=== PATIENT | male | born 1955 | race American Indian/Alaskan Native ===

== ENCOUNTER 2019-01-23 12:10 | Observation (INO) | payer MEDICARE, OTHER ==
[2019-01-11 12:45] LABS: Basophils # (Auto) 0.1 K/mm3 (0.0-0.1); Basophils % (Auto) 1.8 % (0.0-1.8); Eosinophils # (Auto) 0.2 K/mm3 (0.0-0.4); Eosinophils % (Auto) 3.5 % (0.0-4.3); Hematocrit 44.1 % (35.5-45.6); Hemoglobin 14.8 gm/dl (11.8-15.2); Lymphocytes # (Auto) 1.3 K/mm3 (1.2-5.4); Mean Corpuscular HGB Conc 34 % (32-34); Mean Corpuscular Volume 94 fl (84-94); Monocytes # (Auto) 0.3 K/mm3 (0.0-0.8); Platelet Count 218 K/mm3 (140-440); Red Cell Distribution Width 14.5 % (13.2-15.2)
[2019-01-11 12:57] LABS: Alanine Aminotransferase 28 units/L (7-56); Albumin 4.3 g/dL (3.9-5); BUN/Creatinine Ratio 16; Blood Urea Nitrogen 14 mg/dL (9-20); Calcium 8.8 mg/dL (8.4-10.2); Hemolysis Index 29
--- NOTE | 2019-01-11 17:02 | Anesthesia Consultation ---
Anesthesia Consult and Med Hx Date of service: 01/11/19 - Airway Anesthetic Teeth Evaluation: Good ROM Head & Neck: Adequate Mental/Hyoid Distance: Adequate Mallampati Class: Class II Intubation Access Assessment: Good - Pulmonary Exam CTA: Yes - Cardiac Exam Cardiac Exam: RRR - Pre-Operative Health Status ASA Pre-Surgery Classification: ASA2 Proposed Anesthetic Plan: General (severe PONV with anesthesia) - Pulmonary Hx Smoking: No Hx Sleep Apnea: Yes (DX SLEEP APNEA , NO CPAP USE.) - Cardiovascular System Hx Hypertension: No
[~2019-01-23 12:10] MED LIST: GENTAMICIN/NS 80 MG/100 ML 100 ML IV SCH; LACTATED RINGERS 1,000 ML IV SCH; METOCLOPRAMIDE 10 MG/2 ML INJ IV NR; MIDAZOLAM 2 MG/2 ML INJ IV NR; ONDANSETRON 4 MG/2 ML INJ IV NR; VANCOMYCIN/NS 1 GM/250 ML 1 GM/250 ML BAG IV SCH
[2019-01-23] MEDS ORDERED: HYDROmorphone 1 MG/1 ML INJ IV PRN (12:32)
[2019-01-23] MEDS ORDERED: ONDANSETRON 4 MG/2 ML INJ IV PRN ×2 (12:32→16:06)
--- NOTE | 2019-01-23 12:32 | Anesthesia Day of Surgery ---
Anesthesia Day of Surgery - Day of Surgery Patient Examined: Yes Patient H&P Reviewed: Yes Patient is NPO: Yes
[2019-01-23] MEDS ORDERED: ACETAMINOPHEN 500 MG TAB PO NR (12:33)
[2019-01-23] MEDS ORDERED: MAGNESIUM OXIDE 400 MG TAB PO NR (12:33)
[2019-01-23] MEDS ORDERED: MIDAZOLAM 2 MG/2 ML INJ IV NR (13:00)
[2019-01-23] MEDS ORDERED: GABAPENTIN 300 MG CAP PO NR (13:00)
[2019-01-23] MEDS ORDERED: VANCOMYCIN/NS 1 GM/250 ML 1 GM/250 ML BAG IV NR (13:05)
[2019-01-23] MEDS ORDERED: GENTAMICIN 150 MG in SODIUM CHLORIDE 0.9% 100 ML IV NR (13:15)
[2019-01-23] MEDS ORDERED: SODIUM CHLORIDE 0.9% 500 ML 500 ML ONE (13:43)
[2019-01-23] MEDS ORDERED: BUPIVACAINE/PF (0.5%) 5 MG/1 ML 30 ML VIAL INFILTRATI ONE (13:43)
[2019-01-23] MEDS ORDERED: SODIUM CHLORIDE 0.9% 1000 ML 0 ML ONE (13:43)
[2019-01-23] MEDS ORDERED: NEOMY 40 MG/POLYMYXIN B 200,000 UNITS/ML (GU) AMPULE IR ONE ×2 (13:43→15:21)
[2019-01-23] MEDS ORDERED: SODIUM CHLORIDE P/F VIAL 10 ML 20 ML ONE (13:50)
[2019-01-23] MEDS ORDERED: HYDROmorphone 1 MG/1 ML INJ ONE ×2 (14:14→16:33)
[2019-01-23] MEDS ORDERED: PROPOFOL 200 MG/20 ML VIAL IV ONE (14:14)
[2019-01-23] MEDS ORDERED: LIDOCAINE MPF (2%) 20 MG/1 ML VIAL 5 ML ONE (14:14)
[2019-01-23] MEDS ORDERED: BUPIVACAINE/PF (0.5%) 5 MG/1 ML 10 ML VIAL INFILTRATI ONE (15:20)
[2019-01-23] MEDS ORDERED: SODIUM CHLORIDE 0.9% IRR 1,000 ML BOTTLE IR ONE (15:20)
[2019-01-23] MEDS ORDERED: SODIUM CHLORIDE 0.9% 50 ML IVPB IV ONE (15:20)
[2019-01-23] MEDS ORDERED: SODIUM CHLORIDE 0.9% 500 ML IVPB IRRIGATION ONE (15:20)
[2019-01-23] MEDS ORDERED: GLYCOPYRROLATE 0.4 MG/2 ML INJ ONE (15:34)
[2019-01-23] MEDS ORDERED: ONDANSETRON 4 MG/2 ML INJ ONE (15:50)
[2019-01-23] MEDS ORDERED: dexAMETHasone 20 MG/5 ML VIAL ONE (15:50)
--- NOTE | 2019-01-23 16:03 | Short Stay Summary ---
Short Stay Documentation Date of service: 01/23/19 - History H&P: obtained from office - Allergies and Medications Current Medications: Allergies bee venom protein (honey bee) Allergy (Verified 01/10/19 14:32) Anaphylaxis pineapple Allergy (Verified 01/10/19 14:32) Shortness of Breath shellfish derived Allergy (Verified 01/10/19 14:32) Swelling Home Medications Medication Instructions Recorded Confirmed Last Taken Type Naproxen [Naprosyn] 500 mg PO PRN PRN 01/10/19 01/23/19 01/18/19 08:00 History Tamsulosin [Flomax] 0.4 mg PO QDAY 01/10/19 01/23/19 12/24/18 08:00 History Active Medications Gabapentin (Gabapentin) 300 mg PO PREOP NR Stop: 01/23/19 20:00 Last Admin: 01/23/19 13:20 Dose: 300 mg Documented by: Hydromorphone HCl (Dilaudid) 0.5 mg IV Q10MIN PRN PRN Reason: Pain , Severe (7-10) Stop: 01/23/19 22:00 Lactated Ringer's (Lactated Ringers) 1,000 mls @ 100 mls/hr IV DIRECT ALICE Last Admin: 01/23/19 13:25 Dose: 100 mls/hr Documented by: Vancomycin HCl (Vancomycin/Ns 1 Gm/250 Ml) 1 gm in 250 mls @ 166.667 mls/hr IV PREOP NR; Protocol Stop: 01/23/19 23:59 Last Admin: 01/23/19 13:55 Dose: 166.667 mls/hr Documented by: Gentamicin Sulfate 150 mg/ (Sodium Chloride) 103.75 mls @ 200 mls/hr IV PREOP NR Stop: 01/23/19 23:59 Midazolam HCl (Versed) 2 mg IV PREOP NR Stop: 01/23/19 23:59 Ondansetron HCl (Zofran) 4 mg IV ONCE PRN PRN Reason: Nausea And Vomiting Stop: 01/23/19 23:00 - Brief post op/procedure progress note Date of procedure: 01/23/19 Pre-op diagnosis: impotence Post-op diagnosis: same Procedure: ipp (ams 21+ 4cm RTE) Anesthesia: GETA Surgeon: SHANNAN INIGUEZ Estimated blood loss: minimal Pathology: none Condition: stable - Hospital course Hospital course: pt has abx & pain meds at home post op info on chart - Disposition Condition at discharge: Stable Disposition: DC-01 TO HOME OR SELFCARE Short Stay Discharge Plan Follow up with: MESFIN GUALLPA MD [Primary Care Provider] - 7 Days
[2019-01-23] MEDS ORDERED: SODIUM CHLORIDE 0.9% 1000 ML 1,000 ML ONE (16:05)
[2019-01-23] MEDS ORDERED: MORPHINE 2 MG/1 ML INJ IV PRN (16:06)
[2019-01-23] MEDS ORDERED: NALOXONE 0.4 MG/1 ML INJ IV PRN (16:06)
--- NOTE | 2019-01-23 17:20 | Operative Report ---
PREOPERATIVE DIAGNOSIS: Organic impotence. POSTOPERATIVE DIAGNOSIS: Organic impotence. PROCEDURE: Insertion of inflatable penile prosthesis (AMS-CX 21 cm + 4 cm rear tip extenders). SURGEON: Dr. Osullivan. MANAGER PERSONAL: Kamala Coburn. ANESTHESIA: General. ESTIMATED BLOOD LOSS: Minimal. FLUIDS: Crystalloid. COMPLICATIONS: No complications. INDICATIONS: This patient is a 63-year-old gentleman with history of prostate cancer, status post radiation therapy and prolonged erectile dysfunction, refractory to medical management. Discussed options and reviewed disc. The patient agreed to proceed with surgical intervention. DESCRIPTION OF PROCEDURE: The patient was taken to the operative suite, placed in a supine position. After adequate general anesthesia, he was prepped and draped in a sterile fashion. Angulo catheter was placed on the operative field. A trans-scrotal incision was made with the Bovie. Metal [place] retractor was used for exposure. Stretch measurement of the penis from the pubic bone to the tip of the penis was 17 cm. A 0.25% Marcaine was injected into the right shaft of the penis. No plaque. Mild curvature to the left could be appreciated. It may be 10 degrees. Trans-scrotal incision was made. Bovie was taken down to the corporal bodies, 2-0 Vicryl stay sutures were placed, corporotomies were made with the Bovie. Gentle dilation was performed. Measurements revealed a total of 25 cm bilaterally; therefore, a 21 cm AMS-CX device was prepped 100 with 4 cm rear tip extenders. A 100 mL Conceal reservoir was prepped and placed in the retropubic space via the right external ring. With the aid of the Jarocho needle, the cylinders were placed in the corporal bodies. Corporotomies were then closed with 2-0 Vicryl in a running fashion. Insufflation of the device revealed an excellent cosmetic appearance. It was deflated. The pump was then connected to the reservoir with the quick click connection system and again it was inflated with an excellent cosmetic appearance. The pump and reservoir was connected with the quick click connection system. The pump was then placed in the dependent portion of the scrotum. A 2-0 Vicryl pursestring suture was used to secure it in the dependent portion of the scrotum and the dartos layer was closed with 2-0 Vicryl in a running fashion. Skin was closed with 2-0 Vicryl in interrupted fashion. Collodion and then Xeroform gauze was placed as well as a mummy wrap. The patient tolerated the procedure well and was extubated and taken to recovery room. He will be observed overnight. He has his prescriptions for pain medication and antibiotics. JOB# [id number] [facility]
--- NOTE | 2019-01-23 20:02 | Post Anesthesia Evaluation ---
- Post Anesthesia Evaluation Patient Participated: Yes Airway Patent: Yes Stable Respiratory Function: Yes Nausea/Vomiting: No Temp > 96.8F: Yes Pain Manageable: Yes Adequeate Hydration: Yes Anesthesia Complications: No
[2019-01-23] MEDS: ceFAZolin/NS 1 GM/50 ML 1 GM/50 ML BAG IV SCH (22:32)
[2019-01-24] MEDS: HYDROcodone/ACETAMINOPHEN 5-325 MG TAB PO PRN ×2 (03:05→10:29)
[2019-01-24] MEDS: SODIUM CHLORIDE 0.45% 1000 ML 1,000 ML IV SCH ×2 (03:15→10:35)
[2019-01-24] MEDS: ceFAZolin/NS 1 GM/50 ML 1 GM/50 ML BAG IV SCH (06:41)
[2019-01-24] MEDS ORDERED: TAMSULOSIN 0.4 MG CAP PO SCH (10:00)
[2019-01-24 12:12] VITALS: BP 104/61
--- NOTE | 2019-01-24 12:25 | Progress Note ---
Assessment and Plan wrap off ole well Subjective Date of service: 01/24/19 Objective - Constitutional Vitals: Vital Signs - 12hr 01/24/19 01/24/19 01/24/19 04:10 07:41 11:37 Temperature 97.5 F L 97.8 F 97.7 F Pulse Rate 55 L 54 L 60 Respiratory 20 18 18 Rate Blood Pressure 105/58 102/55 104/61 O2 Sat by Pulse 91 96 96 Oximetry General appearance: Present: no acute distress - Neck Neck: supple - Respiratory Respiratory effort: normal - Gastrointestinal General gastrointestinal: Present: soft, non-tender - Genitourinary Male genitourinary: tender - Labs CBC & Chem 7: 01/11/19 12:10 01/11/19 12:10 Medications & Allergies - Medications Allergies/Adverse Reactions: Allergies bee venom protein (honey bee) Allergy (Verified 01/10/19 14:32) Anaphylaxis pineapple Allergy (Verified 01/10/19 14:32) Shortness of Breath shellfish derived Allergy (Verified 01/10/19 14:32) Swelling Home Medications: Home Medications Medication Instructions Recorded Confirmed Last Taken Type Naproxen [Naprosyn] 500 mg PO PRN PRN 01/10/19 01/23/19 01/18/19 08:00 History Tamsulosin [Flomax] 0.4 mg PO QDAY 01/10/19 01/23/19 12/24/18 08:00 History Active Medications: Generic Name Dose Route Start Last Admin Trade Name Freq PRN Reason Stop Dose Admin Acetaminophen/Hydrocodone Bitart 2 each 01/23/19 16:06 01/24/19 10:29 Saucier 5/325 PO 2 each Q6H PRN Administration Pain, Moderate (4-6) Lactated Ringer's 1,000 mls @ 100 mls/hr 01/11/19 18:00 01/23/19 13:25 Lactated Ringers IV 100 mls/hr DIRECT ALICE Administration Sodium Chloride 1,000 mls @ 100 mls/hr 01/23/19 17:00 01/24/19 10:35 Nacl 0.45% 1000 Ml IV 100 mls/hr DIRECT ALICE Administration Morphine Sulfate 2 mg 01/23/19 16:06 01/23/19 22:33 Morphine IV 2 mg Q4H PRN Administration Pain, Moderate (4-6) Naloxone HCl 0.1 mg 01/23/19 16:06 Naloxone IV Q2MIN PRN Res Rate </= 8 or 02 SAT < 92% Ondansetron HCl 4 mg 01/23/19 16:06 Zofran IV Q8H PRN N/V unrelieved by Hung Tamsulosin HCl 0.4 mg 01/24/19 10:00 01/24/19 10:30 Flomax PO 0.4 mg QDAY ALICE Administration
--- NOTE | 2019-01-24 12:25 | Discharge Summary ---
Short Stay Discharge Plan Activity: other Weight Bearing Status: Full Weight Bearing Diet: regular, low fat, low cholesterol, low salt Wound: open to air Special Instructions: other (no sex ) Follow up with: MESFIN GUALLPA MD [Primary Care Provider] - 7 Days SHANNAN INIGUEZ MD [Staff Physician] - 7 Days
== END 2019-01-24 16:00 | disposition home or self-care (01) ==
LOC: OR 12:10 → 3B-SURG 16:06
PROVIDERS: ADMIT Urology; ATTEND Urology
DX: N52.9 Male erectile dysfunction, unspecified (principal); Z91.018 Allergy to other foods; Z91.013 Allergy to seafood
CPT/HCPCS: 36415; 54401; 80053; 85025; 96365; 96366; 96367; 96375; C1813; G0378; J0690; J1100; J1170; J1580; J2250; J2270; J2405; J2704; J3370; J7030; J7040; J7120

== ENCOUNTER 2019-03-07 05:20 | Emergency (ER) | payer MEDICARE, OTHER ==
[2019-03-07 06:18] LABS: Basophils % (Auto) 0.6 % (0.0-1.8); Eosinophils # (Auto) 0.2 K/mm3 (0.0-0.4); Eosinophils % (Auto) 4.2 % (0.0-4.3); Hematocrit 42.2 % (35.5-45.6); Hemoglobin 14.2 gm/dl (11.8-15.2); Lymphocytes # (Auto) 1.3 K/mm3 (1.2-5.4); Lymphocytes % (Auto) 25.7 % (13.4-35.0); Mean Corpuscular HGB Conc 34 % (32-34); Mean Corpuscular Volume 93 fl (84-94); Monocytes # (Auto) 0.5 K/mm3 (0.0-0.8); Monocytes % (Auto) 9.2 % (0.0-7.3); Platelet Count 212 K/mm3 (140-440); Red Blood Count 4.55 M/mm3 (3.65-5.03); Red Cell Distribution Width 14.3 % (13.2-15.2)
[2019-03-07 06:30] LABS: INR 0.98 (0.87-1.13)
[2019-03-07 06:31] LABS: Partial Thromboplastin Time 29.7 Sec. (24.2-36.6)
[2019-03-07 06:41] LABS: Alanine Aminotransferase 33 units/L (7-56); Albumin 4.3 g/dL (3.9-5); BUN/Creatinine Ratio 18; Blood Urea Nitrogen 16 mg/dL (9-20); Calcium 9.1 mg/dL (8.4-10.2); Hemolysis Index 16
[2019-03-07 06:47] VITALS: BP 149/84
--- NOTE | 2019-03-07 06:51 | Emergency Department Report ---
HPI - General Chief Complaint: Urogenital-Male Time Seen by Provider: 03/07/19 06:40 - HPI HPI: 64-year-old Afro-Iraqi male presents to the emergency department with a complaint of some bleeding from the incision site of where the patient had a penis pump placed on January [address] Osullivan. He says "I was told to come to the emergency department any time there is fresh blood." Patient denies any sexual intercourse, masturbation or any type of trauma. He says that he woke up around 4 AM and saw a large amount of blood. He held pressure and the bleeding stopped. He does not have any significant pain. ED Past Medical Hx - Past Medical History Previous Medical History?: Yes Hx Hypertension: No Hx Arthritis: Yes Hx Tuberculosis: Yes (POSITIVE SKIN TEST,TOOK TX, NEG CXR 2008) Hx HIV: No - Surgical History Past Surgical History?: Yes Additional Surgical History: penile implant 01/23/2019 - Social History Smoking Status: Never Smoker Substance Use Type: None - Medications Home Medications: Home Medications Medication Instructions Recorded Confirmed Last Taken Type Naproxen [Naprosyn] 500 mg PO PRN PRN 01/10/19 01/23/19 01/18/19 08:00 History Tamsulosin [Flomax] 0.4 mg PO QDAY 01/10/19 01/23/19 12/24/18 08:00 History ED Review of Systems ROS: Stated complaint: BLEEDING FROM SCROTUM PUMP Other details as noted in HPI Comment: All other systems reviewed and negative Constitutional: denies: chills, fever Respiratory: denies: cough, shortness of breath Cardiovascular: denies: chest pain Gastrointestinal: denies: abdominal pain, vomiting Genitourinary: other (penile bleeding from incision site). denies: dysuria, discharge Skin: denies: rash, lesions Physical Exam - Physical Exam Vital Signs: Vital Signs 03/07/19 03/07/19 05:26 06:45 Temperature 97.8 F 98.3 F Pulse Rate 79 68 Respiratory 18 14 Rate Blood Pressure 132/96 Blood Pressure 149/84 [Left] O2 Sat by Pulse 98 97 Oximetry Physical Exam: GENERAL: The patient is well-developed well-nourished. HEENT: Normocephalic. Atraumatic. Patient has moist mucous membranes. EYES: Extraocular motions are intact. NECK: Supple. Trachea is midline. CHEST/LUNGS: Clear to auscultation. There is no respiratory distress noted. HEART/CARDIOVASCULAR: Regular. There is no tachycardia. There is no murmur. ABDOMEN: Abdomen is soft, nontender. Patient has normal bowel sounds. There is no abdominal distention. SKIN:Skin is warm and dry. . NEURO: The patient is awake, alert, and oriented. The patient is cooperative. Normal speech. MUSCULOSKELETAL: There is no tenderness or deformity. There is no evidence of acute injury. : There is an incision seen to the volar portion of the genitals at the base of the penis and scrotum. No current bleeding. No erythema. No swelling. ED Course Vital Signs 03/07/19 03/07/19 05:26 06:45 Temperature 97.8 F 98.3 F Pulse Rate 79 68 Respiratory 18 14 Rate Blood Pressure 132/96 Blood Pressure 149/84 [Left] O2 Sat by Pulse 98 97 Oximetry - Consultations Consultation #1: 03/07/19 10:[address] Song, the urologist on for Dr. Osullivan, who says the patient can be discharged to follow up in their office this morning starting at 8:45 AM. ED Medical Decision Making - Lab Data Result diagrams: 03/07/19 05:54 03/07/19 05:54 - Medical Decision Making This patient presents with some bleeding at the incision site where he had a penis pump placed about 6 weeks ago. No signs of infection at this time. Vital signs stable. Labs are unremarkable. Hemoglobin of 14. Urinalysis negative f or urinary tract infection. Urology contacted and patient can follow-up in the office this morning. Patient understands and was discharged to go directly to the urology office. - Differential Diagnosis cellulitis, hematoma, dehiscence Critical Care Time: No Critical care attestation.: If time is entered above; I have spent that time in minutes in the direct care of this critically ill patient, excluding procedure time. ED Disposition Clinical Impression: Postoperative bleeding from incision Complication of implanted penile prosthesis Qualifiers: Device complication type: unspecified Encounter type: initial encounter Qualified Code(s): T83.9XXA - Unspecified complication of genitourinary prosthetic device, implant and graft, initial encounter Disposition: -01 TO HOME OR SELFCARE Is pt being admited?: No Condition: Stable Additional Instructions: Please go to the [place] office of Dr. Osullivan and Dr. King for evaluation of the bleeding from your incision from the penile pump. Referrals: KIP SONG MD [Staff Physician] - 03/07/19 8:45 am Time of Disposition: 08:15
[2019-03-07 08:13] LABS: Bacteria,Urine 1+ /HPF (Negative); Bilirubin,Urine NEG (Negative); Blood,Urine NEG (Negative); Color,Urine Straw (Yellow); Protein,Urine <15 mg/dL mg/dL (Negative); Urobilinogen,Urine < 2.0 mg/dL (<2.0); WBC,Urine < 1.0 /HPF (0.0-6.0)
== END 2019-03-07 08:15 | disposition home or self-care (01) ==
LOC: ED 05:20
DX: N99.820 Postprocedural hemorrhage of a genitourinary system organ or structure following a genitourinary system procedure (principal); M19.90 Unspecified osteoarthritis, unspecified site; Z86.11 Personal history of tuberculosis; Z79.899 Other long term (current) drug therapy; Z91.030 Bee allergy status; Z91.013 Allergy to seafood; Z91.018 Allergy to other foods
CPT/HCPCS: 36415; 80053; 81001; 85025; 85610; 85730; 86850; 86900; 86901